=== PATIENT | male | born 1995 | race Caucasian/White ===

== ENCOUNTER 2018-11-15 19:03 | Emergency (ER) | payer OTHER ==
[~2018-11-15] VITALS: Ht 182.9 cm; Wt 83.9 kg
[2018-11-15 19:24] VITALS: BP 138/71
[2018-11-15 19:44] LABS: BASOPHILS # (AUTO) 0.1 10^3/uL (0.0-0.1); BASOPHILS % (AUTO) 1 % (0-10); EOSINOPHILS # (AUTO) 0.1 10^3/uL (0.0-0.3); EOSINOPHILS % (AUTO) 1 % (0-10); HEMATOCRIT 40 % (40-54); HEMOGLOBIN 14.5 G/DL (13.3-17.7); LYMPHOCYTES # (AUTO) 2.9 X 10^3 (1.0-4.0); LYMPHOCYTES % (AUTO) 29 % (12-44); MEAN CORPUSCULAR HEMOGLOBIN 32 PG (25-34); MEAN CORPUSCULAR HGB CONC 37 G/DL (32-36); MEAN CORPUSCULAR VOLUME 86 FL (80-99); MEAN PLATELET VOLUME 10.7 FL (7.4-10.4); MONOCYTES # (AUTO) 0.7 X 10^3 (0.0-1.0); MONOCYTES % (AUTO) 7 % (0-12); NEUTROPHILS # (AUTO) 6.2 X 10^3 (1.8-7.8); NEUTROPHILS % (AUTO) 63 % (42-75); PLATELET COUNT 278 10^3/uL (130-400); RED CELL DISTRIBUTION WIDTH 12.1 % (10.0-14.5); WHITE BLOOD COUNT 9.9 10^3/uL (4.3-11.0)
--- NOTE | 2018-11-15 19:56 | Diagnostic Imaging Report ---
EXAMINATION: Portable erect AP chest at 07:29 p.m. INDICATION: Chest pain. FINDINGS: There are no prior studies available for comparison. The heart size is within normal limits. The lungs are clear. There is no evidence for pneumonia or for a pleural effusion and there is no sign of pneumothorax. The mediastinum is not widened. The osseous structures are intact. IMPRESSION: There is no evidence for an acute cardiopulmonary abnormality. Dictated by: Dictated on workstation # [id number]
[2018-11-15 19:58] LABS: PROTHROMBIN TIME PATIENT 13.3 SEC (12.2-14.7)
--- NOTE | 2018-11-15 20:00 | ED Chest Pain ---
General Chief Complaint: Cardiac/General Problems Stated Complaint: CHEST PAIN,DIZZY Source: patient Exam Limitations: no limitations History of Present Illness Date Seen by Provider: Nov 15, 2018 Time Seen by Provider: 19:13 Initial Comments This 23 year old young man presents to the ER with complaints of palpitations, numbness and tingling of his hands and face, and dizziness. Symptoms started while he was sitting on the couch reading his Bible. He felt his heart was "jumping out of my chest". Patient reports he has been working out about 5 days per week and diet restricting. He also has been doing 2 scoops of a pre- workout formula. He took this at around 15:00. He denies any prior episodes of this problem. He denies any use of other stimulants, drugs, or alcohol. He was nauseated in the waiting room but did not vomit. Allergies and Home Medications Allergies Coded Allergies: No Known Drug Allergies (Unverified , 11/15/18) Patient Home Medication List Home Medication List Reviewed: Yes Review of Systems Review of Systems Constitutional: see HPI EENTM: No Symptoms Reported Respiratory: No Symptoms Reported Cardiovascular: See HPI Gastrointestinal: See HPI Genitourinary: No Symptoms Reported Musculoskeletal: no symptoms reported Skin: no symptoms reported Psychiatric/Neurological: See HPI Endocrine: No Symptoms Reported Hematologic/Lymphatic: No Symptoms Reported Past Disemhu-Eddsgz-Sbkslc Hx Past Med/Social Hx: Reviewed Nursing Past Med/Soc Hx Patient Social History Alcohol Use: Denies Use Recreational Drug Use: No Smoking Status: Never a Smoker Recent Foreign Travel: No Contact w/Someone Who Travel: No Recent Hopitalizations: No Immunizations Up To Date Date of Influenza Vaccine: Jun 20, 2018 Seasonal Allergies Seasonal Allergies: No Past Medical History Surgeries: Yes (LEFT INGUINAL HERNIA REPAIR AT 6 YO) Respiratory: No Cardiac: No Neurological: No Genitourinary: No Gastrointestinal: No Musculoskeletal: No Endocrine: No HEENT: No Cancer: No Psychosocial: No Blood Disorders: No Family Medical History Reviewed Nursing Family Hx No Pertinent Family Hx Physical Exam Vital Signs Vital Signs - First Documented 11/15/18 11/15/18 19:14 23:51 Temp 95.9 Pulse 101 Resp 20 B/P (MAP) 161/78 (105) Pulse Ox 100 Capillary Refill : Height, Weight, BMI Height: '" Weight: lbs. oz. kg; BMI Method: General Appearance: WD/WN, Anxious HEENT: PERRL/EOMI, Normal ENT Inspection, Pharynx Normal Neck: Normal Inspection Respiratory: Lungs Clear, Normal Breath Sounds, No Accessory Muscle Use, No Respiratory Distress Cardiovascular: No Edema, No Murmur, Normal Peripheral Pulses, Tachycardia Gastrointestinal: Non Tender, Soft Extremity: Normal Inspection, No Calf Tenderness, No Pedal Edema, Other ( negative Javier) Neurologic/Psychiatric: Alert, Oriented x3, No Motor/Sensory Deficits, manufacturing scheduler II- XII Norm as Tested, Other (mildly anxious) Skin: Normal Color, Warm/Dry Progress/Results/Core Measures Results/Orders Lab Results Laboratory Tests Test 11/15/18 19:35 11/15/18 20:59 11/15/18 22:39 Range/Units White Blood Count 9.9 4.3-11.0 10^3/uL Red Blood Count 4.61 4.35-5.85 10^6/uL Hemoglobin 14.5 13.3-17.7 G/DL Hematocrit 40 40-54 % Mean Corpuscular Volume 86 80-99 FL Mean Corpuscular Hemoglobin 32 25-34 PG Mean Corpuscular Hemoglobin Concent 37 H 32-36 G/DL Red Cell Distribution Width 12.1 10.0-14.5 % Platelet Count 278 130-400 10^3/uL Mean Platelet Volume 10.7 H 7.4-10.4 FL Neutrophils (%) (Auto) 63 42-75 % Lymphocytes (%) (Auto) 29 12-44 % Monocytes (%) (Auto) 7 0-12 % Eosinophils (%) (Auto) 1 0-10 % Basophils (%) (Auto) 1 0-10 % Neutrophils # (Auto) 6.2 1.8-7.8 X 10^3 Lymphocytes # (Auto) 2.9 1.0-4.0 X 10^3 Monocytes # (Auto) 0.7 0.0-1.0 X 10^3 Eosinophils # (Auto) 0.1 0.0-0.3 10^3/uL Basophils # (Auto) 0.1 0.0-0.1 10^3/uL Prothrombin Time 13.3 12.2-14.7 SEC INR Comment 1.0 0.8-1.4 Activated Partial Thromboplast Time 29 24-35 SEC D-Dimer < 0.27 0.00-0.49 UG/ML Sodium Level 138 135-145 MMOL/L Potassium Level 2.8 L 3.6-5.0 MMOL/L Chloride Level 103 98-107 MMOL/L Carbon Dioxide Level 17 L 21-32 MMOL/L Anion Gap 18 H 5-14 MMOL/L Blood Urea Nitrogen 16 7-18 MG/DL Creatinine 1.46 H 0.60-1.30 MG/DL Estimat Glomerular Filtration Rate 60 BUN/Creatinine Ratio 11 Glucose Level 123 H 70-105 MG/DL Calcium Level 10.2 H 8.5-10.1 MG/DL Corrected Calcium 8.5-10.1 MG/DL Magnesium Level 1.9 1.8-2.4 MG/DL Total Bilirubin 1.0 0.1-1.0 MG/DL Aspartate Amino Transf (AST/SGOT) 25 5-34 U/L Alanine Aminotransferase (ALT/SGPT) 10 0-55 U/L Alkaline Phosphatase 50 40-136 U/L Total Creatine Kinase 201 H 30-200 U/L Myoglobin 37.6 10.0-92.0 NG/ML Troponin I < 0.028 < 0.028 <0.028 NG/ML Total Protein 8.1 6.4-8.2 GM/DL Albumin 4.8 H 3.2-4.5 GM/DL Urine Opiates Screen NEGATIVE NEGATIVE Urine Oxycodone Screen NEGATIVE NEGATIVE Urine Methadone Screen NEGATIVE NEGATIVE Urine Propoxyphene Screen NEGATIVE NEGATIVE Urine Barbiturates Screen NEGATIVE NEGATIVE Ur Tricyclic Antidepressants Screen NEGATIVE NEGATIVE Urine Phencyclidine Screen NEGATIVE NEGATIVE Urine Amphetamines Screen NEGATIVE NEGATIVE Urine Methamphetamines Screen NEGATIVE NEGATIVE Urine Benzodiazepines Screen NEGATIVE NEGATIVE Urine Cocaine Screen NEGATIVE NEGATIVE Urine Cannabinoids Screen NEGATIVE NEGATIVE My Orders Orders - ADONIS CHEUNG MD Cbc With Automated Diff (11/15/18 19:21) Magnesium (11/15/18 19:21) Chest 1 View, Ap/Pa Only (11/15/18 19:21) Ekg Tracing (11/15/18 19:21) Cardiac Profile 1 (11/15/18 19:21) Comprehensive Metabolic Panel (11/15/18 19:21) Myoglobin Serum (11/15/18 19:21) Protime With Inr (11/15/18 19:21) Partial Thromboplastin Time (11/15/18 19:21) O2 (11/15/18 19:21) Monitor-Rhythm Ecg Trace Only (11/15/18 19:21) Saline Lock/Iv-Start (11/15/18 19:21) Fibrin Degradation Products (11/15/18 19:21) Drug Screen Stat (Urine) (11/15/18 19:57) Ns W/Kcl 20 Meq/L (Ns Iv W/Kcl 20 Meq/L) (11/15/18 20:30) Creatine Kinase (11/15/18 20:28) Potassium Chloride (Tablet) (Klor Con Ta (11/15/18 21:15) Lactated Ringers (Lr 1000 Ml Iv Solution (11/15/18 21:07) General/Regular (11/15/18 Dinner) Troponin I (11/15/18 22:22) Ekg Tracing (11/15/18 22:22) Medications Given in ED Vital Signs/I&O 11/15/18 11/15/18 11/15/18 19:14 19:24 23:51 Temp 95.9 95.9 Pulse 101 71 Resp 20 20 B/P (MAP) 161/78 (105) 138/71 (93) 126/88 (101) Pulse Ox 100 Progress Progress Note #1: Time: 20:57 Progress Note Patient was found to have significant hypokalemia. He has been working out 5 days per week and diet restricting. His creatinine is also bumped although his GFR is greater than 60. He is being hydrated with a liter of normal saline with 20 and make you of KCl running at 500 mL per hour. After that is complete , I will give a liter of LR and replace his potassium further with oral dosing. Patient feels much better at this time. He is eating ice chips as well to help with hydration. CK is minimally elevated. Progress Note #2: Progress Note Case was reviewed with Dr. Mederos. He recommended repeat troponin and EKG after potassium replacement. Troponin was normal. ST changes on prior EKG resolved with the repeat EKG. Patient was feeling much better and was ultimately discharged home. Initial ECG Impression Date: Nov 15, 2018 Initial ECG Impression Time: 19:20 Initial ECG Rate: 89 Initial ECG Rhythm: Normal Sinus Comment Sinus rhythm with nonspecific ST changes suggestive of secondary repolarization abnormality. EKG : EKG Time: 22:59 Rate: 62 Rhythm: Normal Sinus Intervals: Normal ECG Impression: Normal Comment Normal sinus rhythm with no ST elevation or depression. No abnormal intervals or axis deviation. ST changes seen on previous EKG have completely resolved after potassium replacement. Diagnostic Imaging Diagonstic Imaging: Xray Plain Films/CT/US/NM/MRI: chest Comments Chest x-ray viewed by me and report reviewed. See report below: NAME: KYM CARMONA MED REC#: [id number] PT STATUS: REG ER : 1995 PHYSICIAN: ADONIS CHEUNG MD ADMIT DATE: 11/15/18/ER Draft Date of Exam:11/15/18 CHEST 1 VIEW, AP/PA ONLY EXAMINATION: Portable erect AP chest at 07:29 p.m. INDICATION: Chest pain. FINDINGS: There are no prior studies available for comparison. The heart size is within normal limits. The lungs are clear. There is no evidence for pneumonia or for a pleural effusion and there is no sign of pneumothorax. The mediastinum is not widened. The osseous structures are intact. IMPRESSION: There is no evidence for an acute cardiopulmonary abnormality. Dictated on workstation # [id number] Dict: 11/15/181950 Trans: 11/15/181954 [id number] Interpreted by: THOMAS OSHEA MD Departure Impression Primary Impression: Hypokalemia Additional Impression: Palpitations Disposition: 01 HOME, SELF-CARE Condition: Improved Departure-Patient Inst. Referrals: [facility] (PCP/Family) Primary Care Physician Patient Instructions: Hypokalemia Add. Discharge Instructions: Drink plenty of clear liquids. Refrain from strenuous activity for a few days and reduce the intensity of your workouts when you resume them. Eat a well-balanced diet. Make a conscious effort to eat some foods high in potassium such as citrus fruits and juices, yogurt, bananas, etc. Follow-up with your primary care doctor or the [facility] clinic to have your potassium checked again within the week. Return to care if you have worsening symptoms. All discharge instructions reviewed with patient and/or family. Voiced understanding. Copy Copies To 1: NIKIA TAMAYO MD, JOSHUA T MD Nov 15, 2018 20:00
[2018-11-15 20:12] LABS: ALANINE AMINOTRANSFERASE 10 U/L (0-55); ALBUMIN 4.8 GM/DL (3.2-4.5); ALKALINE PHOSPHATASE 50 U/L (40-136); BUN/CREATININE RATIO 11; CALCIUM 10.2 MG/DL (8.5-10.1); CARBON DIOXIDE 17 MMOL/L (21-32); CHLORIDE 103 MMOL/L (98-107); CREATININE SERUM 1.46 MG/DL (0.60-1.30); GFR ESTIMATED 60; GLUCOSE 123 MG/DL (70-105); MAGNESIUM 1.9 MG/DL (1.8-2.4); POTASSIUM 2.8 MMOL/L (3.6-5.0); SODIUM 138 MMOL/L (135-145); TOTAL PROTEIN 8.1 GM/DL (6.4-8.2)
[2018-11-15 20:15] LABS: MYOGLOBIN SERUM 37.6 NG/ML (10.0-92.0)
[2018-11-15] MEDS ORDERED: NS W/KCL 20 MEQ/L 1,000 ML IV ONE (20:30)
[2018-11-15] MEDS ORDERED: LACTATED RINGERS 1,000 ML IV ONE (21:07)
[2018-11-15] MEDS ORDERED: KCL 10 MEQ TAB (MICRO K) PO ONE (21:15)
[2018-11-15 21:30] LABS: AMPHETAMINE SCREEN, URINE NEGATIVE (NEGATIVE); BARBITURATE SCREEN URINE NEGATIVE (NEGATIVE); BENZODIAZEPINES SCREEN URINE NEGATIVE (NEGATIVE); CANNABINOID SCREEN, URINE NEGATIVE (NEGATIVE); COCAINE SCREEN URINE NEGATIVE (NEGATIVE); METHADONE STAT NEGATIVE (NEGATIVE); METHAMPHETAMINE SCREEN URINE S NEGATIVE (NEGATIVE); OPIATE SCREEN URINE NEGATIVE (NEGATIVE); OXYCODONE STAT NEGATIVE (NEGATIVE); PROPOXYPHENE STAT NEGATIVE (NEGATIVE); TRICYCLIC ANTIDEPRESSANTS SCRE NEGATIVE (NEGATIVE)
[2018-11-15 23:51] VITALS: BP 126/88
== END 2018-11-15 23:52 | disposition home or self-care (01) ==
LOC: ER 19:04
DX: R00.2 Palpitations (principal); E87.6 Hypokalemia; Z98.890 Other specified postprocedural states
CPT/HCPCS: 36415; 71045; 80053; 80306; 82550; 83735; 83874; 84484; 85025; 85379; 85610; 85730; 93005; 93041